=== PATIENT | female | born 1940 | race Caucasian/White ===

== ENCOUNTER 2024-04-27 17:11 | Emergency (ER) | payer MEDICARE, OTHER ==
[~2024-04-27] VITALS: Ht 154.9 cm; Wt 46.0 kg
[2024-04-27 17:20] VITALS: TEMP 36.8; O2SAT 100
[2024-04-27 21:46] LABS: BASOPHILS % 0.4 % (0.0-2.0); EOSINOPHILS % 0.1 % (0.0-5.0); HEMATOCRIT. 35.7 % (36.0-48.0); LYMPHOCYTES % 9.7 % (20.0-50.0); MEAN CORPUSCULAR HEMOGLOBIN 30.3 pg (28.0-32.0); MEAN CORPUSCULAR HGB CONC 33.5 g/dL (31.0-37.0); MEAN CORPUSCULAR VOLUME 90.4 fL (81.0-99.0); MEAN PLATELET VOLUME 7.7 fl (7.4-10.4); MONOCYTES % 6.2 % (2.0-8.0); NEUTROPHILS % 83.6 % (40.0-76.0); PLATELET 362 x1000/uL (130-400); RED BLOOD CELL COUNT 3.95 mill/uL (4.2-5.4)
[2024-04-27 21:47] LABS: CHLORIDE 106 mEq/L (98-107); POTASSIUM 3.5 mEq/L (3.5-5.1); SODIUM 142 mEq/L (136-145)
[2024-04-27 21:48] LABS: CALCIUM 9.5 mg/dL (8.7-10.4); CARBON DIOXIDE 28 mEq/L (21-32)
[2024-04-27 21:53] LABS: CREATININE 0.5 mg/dL (0.6-1.0)
[2024-04-27 21:54] LABS: GLUCOSE 93 mg/dL (70-105); PROTHROMBIN TIME 11.3 sec (9.6-11.0); UREA NITROGEN BLOOD 11 mg/dL (9-23)
[2024-04-27 21:55] LABS: ALANINE AMINOTRANSFERASE 16 IU/L (10-49); ALBUMIN 3.7 g/dL (3.2-4.8); ASPARTATE AMINOTRANSFERASE 17 IU/L (<34)
[2024-04-27 21:56] LABS: BILIRUBIN DIRECT 0.1 mg/dL (<=3.0); BILIRUBIN TOTAL 0.5 mg/dL (0.1-1.0); PROTEIN TOTAL 6.8 g/dL (6.0-8.3)
[2024-04-27 21:58] LABS: ETHANOL BLOOD < 10 mg/dL (<10)
[2024-04-28] VITALS: BP 110/50; PULSE 82; RESP 16; O2SAT 98
== END 2024-04-28 00:02 | disposition home or self-care (01) ==
LOC: ER 17:11
DX: K80.20 Calculus of gallbladder without cholecystitis without obstruction (principal); I10 Essential (primary) hypertension; J44.9 Chronic obstructive pulmonary disease, unspecified; Z88.0 Allergy status to penicillin
CPT/HCPCS: 36415; 74176; 80048; 80076; 80320; 85025; 93005; 99284; G0480